=== PATIENT | female | born 1960 | race Caucasian/White ===

== ENCOUNTER 2017-08-12 12:26 | Day surgery (SDC) | payer OTHER ==
[~2017-08-12 12:26] MED LIST: Buffered Lidocaine 0.9% SYRIN* 5 ML/SYR SYRINGE INTRADERM ONE; DiMENhydriNATE IV* 50 MG/ML VIAL IV PUSH PRN; Famotidine IV* 10 MG/ML 2 ML (20 mg) IV ONE; Morphine INJ* 2 MG/ML 1 ML CARPUJECT IV PRN; Naloxone* 0.4 MG/ML 1 ML VIAL IV PRN; PROCHLORPERAZINE INJ 5 MG/ML 2 ML VIAL IV PRN; Scopolamine 1.5 mg* PATCH TRANSDERM ONE; fentaNYL* 50 MCG/ML 2 ML VIAL (100 MCG VIAL) IV PRN; oxyCODONE/Acetamin 5/325 MG* TAB PO PRN
[2017-08-12] MEDS ORDERED: Scopolamine 1.5 mg* PATCH ONE (12:36)
[2017-08-12] MEDS ORDERED: Famotidine IV* 10 MG/ML 2 ML (20 mg) ONE (12:36)
[2017-08-12] MEDS ORDERED: fentaNYL* 50 MCG/ML 5 ML VIAL (250 MCG VIAL) ONE (15:14)
[2017-08-12] MEDS ORDERED: Midazolam* 1 MG/ML 10 ML VIAL (10 MG) ONE (15:15)
[2017-08-12] MEDS ORDERED: Lidocaine 2% EPI 1:200000 MPF* 20 ML VIAL ONE (15:34)
[2017-08-12] MEDS ORDERED: EPINEPHRINE 1 MG/ML 1 ML VIAL ONE (15:34)
[2017-08-12] MEDS ORDERED: Gelfoam 12-7 ADSORBABL SPONGE* 1 EA SPONGE ONE (15:34)
[2017-08-12] MEDS ORDERED: Methylene Blue 0.5 %* 50 MG/10 ML AMP IV ONE (15:34)
[2017-08-12] MEDS ORDERED: Ciprofloxacin 0.3% OPTH.SOL* 2.5 ML BTL ONE (15:43)
[2017-08-12] MEDS ORDERED: Lidocaine 2% PF * 5 ML VIAL ONE (17:37)
[2017-08-12] MEDS ORDERED: Propofol* 10 MG/ML 20 ML BTL IV PUSH ONE (17:37)
[2017-08-12] MEDS ORDERED: Dexamethasone IV* 4 MG/ML 1 ML (4 MG) ONE (17:37)
[2017-08-12] MEDS ORDERED: Ondansetron INJ* 2 MG/ML VIAL ONE (17:37)
[2017-08-12 18:31] VITALS: BP 123/66
--- NOTE | 2017-08-13 16:24 | OP ---
DATE OF OPERATION: 08/12/17 - [facility] DATE OF : 62 SURGEON: León Santana MD. ANESTHESIOLOGIST: Juanito Sanders MD ANESTHESIA: General PRE-OP DIAGNOSIS: Cholesteatoma, left ear. POST-OP DIAGNOSIS: Cholesteatoma, left ear. OPERATIVE PROCEDURE: Tympanoplasty with cartilage graft. BRIEF HISTORY: This is a 56-year-old female with recurring otorrhea, left ear. Examination had extensive middle ear cholesteatoma and on CT scan extensive sclerotic mastoid. DESCRIPTION OF PROCEDURE: The patient was taken to the operating room, general anesthesia was given, the patient was intubated with LMA. Left ear was then examined with microscope after being prepped and draped in the usual fashion. I cleaned out the middle ear space and it was obvious that most of the cholesteatoma was confined in the ear in the attic region, which was portion of the very sclerotic mastoid and there was no cholesteatoma in the attic region. I removed all the epithelium that was along the promontory. Again, the middle ear was quite deformed and I did not identify very many normal structures. The NIM monitor was used to continually check for facial nerve function. I then realized that I was going to just graft the whole residual tympanic membrane, which was only a small portion with cartilage so that no further epithelium would retract into the attic region. I therefore harvested an auricular cartilage, fashioned it with 2 mm and placed it as a tympanic graft with Gelfoam in the middle space and then extended along the lateral wall so as to close the attic area from epithelial collapse. This completely covered and created a new tympanic membrane. This was secured in place with a Gelfoam, which was placed laterally and along the margins of the newly formed tympanic membrane. Ofloxacin drops were the ear incision to harvest the graft. The auricle was then closed. The patient was awakened and sent to recovery room in stable condition. Instrument and sponge counts were correct. Blood loss minimal. [id number]/[facility] #: [id number] [facility]
[2017-08-15] MEDS ORDERED: Scopolamine PATCH Remove* 1 NOTE MISC PATCH OFF ONE (06:00)
== END 2017-08-12 18:32 | disposition home or self-care (01) ==
LOC: OR 12:26
PROVIDERS: ATTEND Otolaryngology
DX: H60-H95 Diseases of the ear and mastoid process (principal); H90.12 Conductive hearing loss, unilateral, left ear, with unrestricted hearing on the contralateral side; H72.92 Unspecified perforation of tympanic membrane, left ear
CPT/HCPCS: A9270-GY; J1100; J2250; J2405; J2704; J3010